=== PATIENT | female | born 1995 | race Two or more races ===

== ENCOUNTER 2022-06-25 12:36 | Emergency (ER) | payer OTHER ==
[~2022-06-25] VITALS: Ht 157.5 cm; Wt 59.0 kg
== END 2022-06-25 17:24 | disposition home or self-care (01) ==
LOC: ER 12:36
DX: L02.511 Cutaneous abscess of right hand (principal)

== ENCOUNTER 2022-10-05 20:39 | Emergency (ER) | payer OTHER ==
[~2022-10-05] VITALS: Ht 157.5 cm; Wt 60.8 kg
[2022-10-05] MEDS ORDERED: PEPCID AC20 MG PO (22:26)
[2022-10-05] MEDS ORDERED: ONDANSETRON ODT8 MG PO (22:26)
== END 2022-10-05 22:31 | disposition home or self-care (01) ==
LOC: ER 20:39
DX: K52.9 Noninfective gastroenteritis and colitis, unspecified (principal); R11.2 Nausea with vomiting, unspecified; Z88.8 Allergy status to other drugs, medicaments and biological substances

== ENCOUNTER 2023-07-27 10:08 | Emergency (ER) | payer OTHER ==
[~2023-07-27] VITALS: Ht 157.5 cm; Wt 60.3 kg
[~2023-07-27 10:08] MED LIST: ONDANSETRON ODT8 MG PO; PEPCID AC20 MG PO
[2023-07-27 11:11] LABS: HEMATOCRIT 39.7 % (36.0-45.00); HEMOGLOBIN 13.3 g/dL (12.0-15.00); MEAN CELL VOLUME 92.8 fL (80.00-100.00); MEAN CORPUSCULAR HEMOGLOBIN 31.1 pg (27.00-32.0); MEAN CORPUSCULAR HGB CONC 33.5 g/dl (32.0-36.0); PLATELET COUNT 302 K/uL (150-450); RED BLOOD COUNT 4.28 M/uL (4.00-6.00); RED CELL DISTRIBUTION WIDTH 12.2 % (11.5-14.5)
[2023-07-27 11:43] LABS: URINE APPEARANCE Clear; URINE BILIRRUBIN Negative (NEGATIVE); URINE BLOOD Moderate; URINE COLOR Dark Yellow; URINE GLUCOSE Negative (NEGATIVE); URINE LEUKOCYTE Negative; URINE NITRATE Negative; URINE PROTEIN Trace (NEGATIVE); URINE UROBILINOGEN 0.2 E.U./dl
[2023-07-27 11:44] LABS: URINE BACTERIA 278.4 uL (0.0-1933); URINE EPITHELIAL CELLS 16.6 uL (0.0-38.8); URINE RBC 90.6 uL (0.0-20.8); URINE WBC 14.3 uL (0.0-23.2)
[2023-07-27 12:29] LABS: CREATININE SERUM 0.8 mg/dL (0.55-1.02); GFR 85.41; POTASSIUM 3.71 mEq/L (3.5-5.1)
== END 2023-07-27 15:09 | disposition home or self-care (01) ==
LOC: ER 10:08
PROVIDERS: Emergency Medicine
DX: K52.89 Other specified noninfective gastroenteritis and colitis (principal); Z88.8 Allergy status to other drugs, medicaments and biological substances; R11.2 Nausea with vomiting, unspecified

== ENCOUNTER → 2023-10-11 | Emergency (ER) | payer OTHER ==
[~2023-10-11] VITALS: Ht 157.5 cm; Wt 62.1 kg
[2023-10-11 12:46] LABS: HEMATOCRIT 41.9 % (36.0-45.00); HEMOGLOBIN 14.4 g/dL (12.0-15.00); MEAN CELL VOLUME 92.6 fL (80.00-100.00); MEAN CORPUSCULAR HEMOGLOBIN 31.8 pg (27.00-32.0); MEAN CORPUSCULAR HGB CONC 34.3 g/dl (32.0-36.0); PLATELET COUNT 299 K/uL (150-450); RED BLOOD COUNT 4.52 M/uL (4.00-6.00); RED CELL DISTRIBUTION WIDTH 12.1 % (11.5-14.5)
[2023-10-11 13:29] LABS: CALCIUM 9.4 mg/dL (8.5-10.1); CREATININE SERUM 0.76 mg/dL (0.55-1.02); GFR 89.97; POTASSIUM 4.17 mEq/L (3.5-5.1)
[2023-10-11 13:30] LABS: PH,URINE 5.5 (5.0-8.0); URINE APPEARANCE Cloudy; URINE BILIRRUBIN Negative (NEGATIVE); URINE BLOOD Small; URINE COLOR Yellow; URINE GLUCOSE Negative (NEGATIVE); URINE LEUKOCYTE Trace; URINE NITRATE Negative; URINE PROTEIN Negative (NEGATIVE); URINE UROBILINOGEN 0.2 E.U./dl
[2023-10-11 13:35] LABS: URINE BACTERIA 1341.8 uL (0.0-1933); URINE EPITHELIAL CELLS 40.4 uL (0.0-38.8); URINE RBC 83.3 uL (0.0-20.8); URINE WBC 64.3 uL (0.0-23.2)
== END | disposition home or self-care (01) ==
LOC: ER 10:26
PROVIDERS: Emergency Medicine
DX: K52.89 Other specified noninfective gastroenteritis and colitis (principal); R11.2 Nausea with vomiting, unspecified

== ENCOUNTER 2024-04-11 18:39 | Emergency (ER) | payer OTHER ==
[~2024-04-11] VITALS: Ht 157.5 cm; Wt 62.6 kg
[2024-04-11] MEDS ORDERED: KETOROLAC TROMETHAMINE 30 MG VIAL IM STA (18:57)
[2024-04-11] MEDS ORDERED: DEXAMETHASONE SODIUM PHOSPHATE 4 MG/ML VIAL IM STA (18:58)
[2024-04-11] MEDS ORDERED: DEXAMETHASONE SODIUM PHOSPHATE 4 MG/ML VIAL ONE (19:27)
[2024-04-11] MEDS ORDERED: KETOROLAC TROMETHAMINE 30 MG VIAL ONE (19:27)
[2024-04-11 19:43] LABS: HEMATOCRIT 36.8 % (36.0-45.00); HEMOGLOBIN 12.7 g/dL (12.0-15.00); MEAN CELL VOLUME 90.5 fL (80.00-100.00); MEAN CORPUSCULAR HEMOGLOBIN 31.2 pg (27.00-32.0); MEAN CORPUSCULAR HGB CONC 34.5 g/dl (32.0-36.0); PLATELET COUNT 273 K/uL (150-450); RED BLOOD COUNT 4.06 M/uL (4.00-6.00); RED CELL DISTRIBUTION WIDTH 12.2 % (11.5-14.5)
[2024-04-11 19:44] LABS: ERYTHROCYTE SEDIMENTATION RATE 10 mm/hr
== END 2024-04-11 21:04 | disposition home or self-care (01) ==
LOC: ER 18:40
PROVIDERS: General Practice
DX: M79.644 Pain in right finger(s) (principal)

== ENCOUNTER 2024-07-10 17:18 | Emergency (ER) | payer OTHER ==
[~2024-07-10] VITALS: Ht 157.5 cm; Wt 61.7 kg
[2024-07-10] MEDS ORDERED: KETOROLAC TROMETHAMINE 60 MG VIAL IM ONE (18:00)
[2024-07-10] MEDS ORDERED: DICLOFENAC SODI75 MG PO (18:31)
== END 2024-07-10 18:51 | disposition home or self-care (01) ==
LOC: ER 17:19
DX: M79.671 Pain in right foot (principal); Z88.8 Allergy status to other drugs, medicaments and biological substances